=== PATIENT | female | born 1960 | race Caucasian/White ===

== ENCOUNTER 2025-01-06 13:19 | Inpatient (IN) ==
--- NOTE | 2025-01-06 13:29 | ED Physician Documentation ---
PD HPI NVD Stated complaint Stated Complaint: ETOH WITHDRAWL Chief complaint Chief Complaint: Abd Pain History obtained from History obtained from: Patient (she states quit alcohol 5-6 days ago, prior to that about 6 pack daily. Had some diarrhea without blood for 2-3 days and is stopped. Feeling generally weak. Having numbness in left foot. Sore around rectum. Feels confused. ) and EMS History of Present Illness Timing - onset: How many days ago (feeling weak, confused for couple of days. ) Timing - details: Gradual onset Associated symptoms: Other (diarrhea for 2-3 days. ); No Fever, Abdominal pain, Loss of appetite or Dysuria Contributing factors: Alcohol use (quit 5-6 days ago. Denies withdrawal symptoms. ); No Sick contact Similar symptoms before: Has not had sx before Meds/Allgy Home Medications Ambulatory Orders Medication Instructions Recorded Confirmed No Known Home Medications 01/06/25 01/06/25 Allergies Allergies Allergy/AdvReac Type Severity Reaction Status Date / Time centipedes Allergy Unknown Unknown Uncoded 01/06/25 13:31 PFSH Active Problems All Active Problems (Updated 01/06/25 @ 16:32 by Marcus Sanchez MD) Acute UTI (Acute) Candidal skin infection (Acute) Acute hyponatremia (Acute) Alcohol use disorder (Acute) Acute confusion (Acute) Weakness (Acute) Social History Social History Do you feel safe in your home environment?: Yes Suffered physical, verbal, emotional, or financial abuse?: No Exam Exam Vital Signs: Vital Signs x48h Temp Pulse Resp BP Pulse Ox 01/06/25 13:31 36.3 C L 86 18 153/91 H 99 Constitutional abnormal body habitus (thin) and (underweight) HENMT normocephalic, head/scalp atraumatic, oral mucous membranes abnormal (dry) and oropharynx normal Eyes PERRL and EOMs intact bilaterally Neck/C-Spine supple and no meningeal signs Lymph no lymphadenopathy noted Respiratory breath sounds equal bilaterally, normal respiratory effort and no wheezes Cardiovascular normal heart rate noted and regular rhythm noted Gastrointestinal abdomen soft to palpation, nontender to palpation and hepatosplenomegaly noted (hepatomegaly) Extremities no tenderness and full ROM Psychiatry orientation abnormal (disoriented to time) and thought process abnormality noted (sluggish responses but coherent and approirpiate) Skin rash noted other (spotty red rash perirectal and some uniform redness immediately perirectal most c/w yeast infection (*presume related to recent diarrhea).) Results Vitals Vitals: Vital Signs - 24 hr 01/06/25 13:31 Temperature 36.3 C L Temperature Source Temporal Artery Scan Pulse Rate 86 Respiratory Rate 18 Blood Pressure 153/91 H O2 Saturation 99 O2 Source Room air Pain Intensity 0 Oxygen O2 Source Room air Labs Labs: Laboratory Tests 01/06/25 01/06/25 14:01 14:08 WBC 5.2 RBC 3.39 L Hgb 12.1 Hct 35.2 L MCV 103.8 H MCH 35.7 H MCHC 34.4 RDW 13.1 Plt Count 127 L MPV 10.4 Neut # (Auto) 3.2 Lymph # (Auto) 1.3 L [place] # (Auto) 0.6 Eos # (Auto) 0.0 Baso # (Auto) 0.1 Absolute Nucleated RBC 0.00 Nucleated RBC % 0.0 Sodium 118 L* Potassium 3.3 L Chloride 86 L Carbon Dioxide 23 Anion Gap 9.0 BUN 7 Creatinine 0.5 L Estimated GFR (MDRD) 123 Glucose 105 H Calcium 8.4 L Magnesium 1.6 L Total Bilirubin 1.3 H AST 88 H ALT 74 H Alkaline Phosphatase 95 Total Creatine Kinase 23 L Total Protein 5.8 L Albumin 3.4 Globulin 2.4 Albumin/Globulin Ratio 1.4 Lipase 47 TSH 1.87 Urine Color YELLOW Urine Clarity CLOUDY Urine pH 7.0 Ur Specific [place] 1.015 Urine Protein TRACE Urine Glucose (UA) NEGATIVE Urine Ketones TRACE Urine Occult Blood TRACE-INTA Urine Nitrite NEGATIVE Urine Bilirubin SMALL H Urine Urobilinogen 4 H Ur Leukocyte Esterase LARGE H Urine RBC None Seen Urine WBC 11-25 H Ur Squamous Epith Cells RARE Squamous Amorphous Sediment Marked Urine Bacteria Many H Ur Microscopic Review INDICATED Urine Culture Comments INDICATED Salicylates < 1.5 Urine Opiates Screen NEGATIVE Ur Buprenorphine Scrn NEGATIVE Ur Oxycodone Screen NEGATIVE Urine Methadone Screen NEGATIVE Acetaminophen 0.2 Ur Barbiturates Screen NEGATIVE Ur Tricyclics Screen NEGATIVE Ur Phencyclidine Scrn NEGATIVE Ur Amphetamine Screen NEGATIVE U Methamphetamines Scrn NEGATIVE U Benzodiazepines Scrn NEGATIVE Urine Cocaine Screen NEGATIVE U Cannabinoids Screen POSITIVE H Ur Drug Screen Comment CUTOFF CONC BELOW: Ethyl Alcohol < 10.0 PD Medical Decision Making ED course Complexity details: reviewed results (low sodium 118, presume from recent d iarrhea, water/alcohol intake-dillution, and can check TSH. UA showing uti. Multiple problems. ), considered differential and d/w patient Discharge Plan Discharge Patient Disposition: 64 [facility] DC/Xfer Condition: Stable Clinical Impression: Acute hyponatremia, Weakness, Acute confusion, Alcohol use disorder, Candidal skin infection, Acute UTI Prescriptions: No Action No Known Home Medications Print Language: Spanish
[2025-01-06 14:11] LABS: BASOPHILS # (AUTO) 0.1 10^3/uL (0.0-0.1); EOSINOPHILS % (AUTO) 0.6 %; HCT - HEMATOCRIT 35.2 % (37.0-47.0); HGB - HEMOGLOBIN 12.1 g/dL (12.0-16.0); LYMPHOCYTES # (AUTO) 1.3 10^3/uL (1.5-3.5); LYMPHOCYTES % (AUTO) 24.6 %; MEAN CORPUSCULAR HEMOGLOBIN 35.7 pg (27.0-31.0); MEAN CORPUSCULAR HGB CONC 34.4 g/dL (32.0-36.0); MEAN CORPUSCULAR VOLUME 103.8 fL (81.0-99.0); MEAN PLATELET VOLUME 10.4 fL (7.9-10.8); MONOCYTES # (AUTO) 0.6 10^3/uL (0.0-1.0); MONOCYTES % (AUTO) 11.8 %; NEUTROPHILS # (AUTO) 3.2 10^3/uL (1.5-6.6); NEUTROPHILS % (AUTO) 61.4 %; PLT - PLATELET COUNT 127 10^3/uL (130-450); RED BLOOD COUNT 3.39 10^6/uL (4.20-5.40); RED CELL DISTRIBUTION WIDTH 13.1 % (12.0-15.0); WHITE BLOOD COUNT 5.2 x10^3/uL (4.8-10.8)
[2025-01-06 14:24] LABS: ACETAMINOPHEN 0.2 ug/mL; CK- CREATINE KINASE 23 IU/L (30-223); ETOH - ETHANOL < 10.0 mg/dL; LIPASE 47 U/L (11-82); MAGNESIUM 1.6 mg/dL (1.7-2.3)
[2025-01-06 14:24] LABS: BILIRUBIN,URINE SMALL (NEGATIVE); GLUCOSE, URINE (UA) NEGATIVE (NEGATIVE); KETONES,URINE (UA) TRACE mg/dL (NEGATIVE); LEUKOCYTE ESTERASE, URINE LARGE (NEGATIVE); NITRITE,URINE NEGATIVE (NEGATIVE); OCCULT BLOOD,URINE TRACE-INTA (NEGATIVE); PROTEIN,URINE TRACE mg/dL (NEGATIVE); UROBILINOGEN,URINE 4 E.U./dL (NORMAL)
[2025-01-06 14:25] LABS: CLARITY,URINE CLOUDY (CLEAR)
[2025-01-06 14:30] LABS: SODIUM 118 mmol/L (135-145)
[2025-01-06] MEDS: SODIUM CHLORIDE 0.9% 1,000 ML IV STA ×2 (14:31→15:31)
[2025-01-06 14:37] LABS: ALBUMIN 3.4 g/dL (3.2-5.5); ALBUMIN/GLOBULIN RATIO 1.4 (1.0-2.2); ALKALINE PHOSPHATASE 95 IU/L (42-121); ALT ALANINE AMINOTRANSFERASE 74 IU/L (10-60); AST ASPARTATE AMINOTRANSFERASE 88 IU/L (10-42); BILIRUBIN,TOTAL 1.3 mg/dL (0.2-1.0); BUN - BLOOD UREA NITROGEN 7 mg/dL (6-20); CALCIUM 8.4 mg/dL (8.5-10.3); CARBON DIOXIDE - CO2 23 mmol/L (21-32); CHLORIDE 86 mmol/L (101-111); CREATININE 0.5 mg/dL (0.6-1.3); GFR - MDRD 123 (>89); GLUCOSE 105 mg/dL (74-104); POTASSIUM 3.3 mmol/L (3.5-4.5); THYROID STIMULATING HORMONE 1.87 uIU/mL (0.34-5.60); TOTAL PROTEIN 5.8 g/dL (6.4-8.9)
[2025-01-06 14:43] LABS: SALICYLATE < 1.5 mg/dL
[2025-01-06 14:49] LABS: AMORPHOUS SEDIMENT,UR Marked /LPF; BACTERIA,URINE Many /HPF (None Seen); RBC,URINE None Seen /HPF (0-5); SQUAMOUS EPITHELIAL CELL,UR RARE Squamous (<= Few)
[2025-01-06 14:50] LABS: AMPHETAMINE SCREEN,URINE NEGATIVE (NEGATIVE); BARBITURATE SCREEN,UR NEGATIVE (NEGATIVE); BENZODIAZEPINES SCREEN, URINE NEGATIVE (NEGATIVE); BUPRENORPHINE SCREEN, URINE NEGATIVE (NEGATIVE); COCAINE SCREEN URINE NEGATIVE (NEGATIVE); METHADONE SCREEN, URINE NEGATIVE (NEGATIVE); METHAMPHETAMINES SCREEN, URINE NEGATIVE (NEGATIVE); OPIATE SCREEN, URINE NEGATIVE (NEGATIVE); OXYCODONE SCREEN, URINE NEGATIVE (NEGATIVE); THC CANNABINOID SCREEN, URINE POSITIVE (NEGATIVE); TRICYCLIC ANTIDEPRESSANT,URINE NEGATIVE (NEGATIVE)
[2025-01-06] MEDS ORDERED: ONDANSETRON 4 MG/2 ML VIAL IVP PRN (15:54)
[2025-01-06] MEDS ORDERED: ACETAMINOPHEN 500 MG TABLET PO PRN (15:54)
[2025-01-06] MEDS: MAGNESIUM OXIDE 400 MG TABLET PO SCH (16:29)
[2025-01-06] MEDS: MULTIVITAMIN TABLET PO SCH (16:29)
[2025-01-06] MEDS: THIAMINE 100 MG TABLET PO STA (16:29)
[2025-01-06] MEDS: PANTOPRAZOLE 40 MG TABLET PO SCH (16:29)
[2025-01-06] MEDS: POTASSIUM BICARB 25 MEQ TABLET PO STA (16:29)
--- NOTE | 2025-01-06 21:01 | ED Physician Documentation ---
ED Addendum Addendum Addendum: Care from Dr. Sanchez earlier in the day at 4 PM. Briefly this is a 64-year-old woman with history of alcoholism who is generally weak and found to have a sodium of 118. She had been boarding in the emergency department as there were no beds available on the floor. At the time of this desiccation (9:01 PM) I am told that we will be opening up at 11 PM so a telehealth hospitalist consult was placed at this time. Spoke with Dr. Duncan shortly thereafter for admission. Discharge Plan Discharge Patient Disposition: 64 [facility] DC/Xfer Condition: Stable Clinical Impression: Acute hyponatremia, Weakness, Acute confusion, Alcohol use disorder, Candidal skin infection, Acute UTI Prescriptions: No Action No Known Home Medications Print Language: Pashto
[2025-01-06] MEDS: NITROFURANTOIN MACRO 100 MG CAPSULE PO SCH (21:10)
--- NOTE | 2025-01-06 21:41 | HISTORY & PHYSICAL EXAMINATION ---
Chief Complaint Chief Complaint Chief Complaint: Weakness History of Present Illness History of Present Illness HPI Comment/Other: 64 Y old female with PMH alcohol abuse presented to ER due to weakness and diarrhea for 2 days. Denies nausea, vomiting, abdominal pain, fever Labs showed Na 118, hyponatremia, hypomagnesemia, and UTI In ER, pt was given IVF, Pt is admitted due to severe hyponatremia, weakness and UTI Review of Systems Status of ROS: 10 or more systems reviewed and unremarkable except as noted in history and below PFSH Active Problems All Active Problems (Updated 01/06/25 @ 16:32 by Marcus Sanchez MD) Acute UTI (Acute) Candidal skin infection (Acute) Acute hyponatremia (Acute) Alcohol use disorder (Acute) Acute confusion (Acute) Weakness (Acute) Social History Social History Do you feel safe in your home environment?: Yes Suffered physical, verbal, emotional, or financial abuse?: No Meds/Allgy Home Medications Ambulatory Orders Medication Instructions Recorded Confirmed No Known Home Medications 01/06/25 01/06/25 Allergies Allergies Allergy/AdvReac Type Severity Reaction Status Date / Time centipedes Allergy Unknown Unknown Uncoded 01/06/25 13:31 Exam Exam Vital Signs: Vital Signs x48h Temp Pulse Resp BP Pulse Ox 01/06/25 20:00 73 18 98 01/06/25 18:04 36.1 C L 81 18 103/67 98 01/06/25 16:39 74 18 127/69 99 Constitutional normal general appearance HENMT normocephalic Eyes PERRL Neck/C-Spine visual inspection normal Respiratory breath sounds equal bilaterally Cardiovascular normal heart rate noted Gastrointestinal abdomen normal to inspection and abdomen soft to palpation Extremities normal to inspection Neurology no focal motor deficit noted Skin no rash Conclusion/Plan Problem List (1) Acute hyponatremia: Plan: A: Severe hyponatremia UTI Hypokalemia Hypomagnesemia Weakness Alcohol abuse Plan: Admit to med surg with tele Cardiac monitoring Start NS @ 100 cc/h Check serum sodium q4h Neuro check Correction of sodium should not exceed more than 0.5 meq per hour Follow cultures Start Rocephin 1 gram iv daily Replace electrolytes PT Monitor for withdrawl Start thiamine and folic acid DVT prophylaxic: SCD Full code Pt is admitted as inpatient as more than 2 midnight stay is expected Lab Results 01/06/25 14:01 01/06/25 14:01
[2025-01-06] MEDS: SODIUM CHLORIDE 0.9% 1,000 ML IV SCH (22:25)
[2025-01-07] MEDS ORDERED: SODIUM CHLORIDE FLUSH 0.9% 10 ML SYRINGE IVP PRN (00:19)
[2025-01-07] MEDS: SODIUM CHLORIDE FLUSH 0.9% 10 ML SYRINGE IVP SCH (00:52)
[2025-01-07] MEDS: SODIUM CHLORIDE 0.9% 1,000 ML IV SCH (01:00)
[2025-01-07 04:41] LABS: BASOPHILS # (AUTO) 0.1 10^3/uL (0.0-0.1); BASOPHILS % (AUTO) 1.1 %; EOSINOPHILS # (AUTO) 0.1 10^3/uL (0.0-0.7); HCT - HEMATOCRIT 31.9 % (37.0-47.0); HGB - HEMOGLOBIN 11.4 g/dL (12.0-16.0); LYMPHOCYTES # (AUTO) 1.7 10^3/uL (1.5-3.5); MEAN CORPUSCULAR HEMOGLOBIN 37.3 pg (27.0-31.0); MEAN CORPUSCULAR HGB CONC 35.7 g/dL (32.0-36.0); MEAN CORPUSCULAR VOLUME 104.2 fL (81.0-99.0); MEAN PLATELET VOLUME 10.3 fL (7.9-10.8); MONOCYTES # (AUTO) 0.5 10^3/uL (0.0-1.0); NEUTROPHILS # (AUTO) 2.1 10^3/uL (1.5-6.6); NEUTROPHILS % (AUTO) 47.5 %; PLT - PLATELET COUNT 121 10^3/uL (130-450); RED BLOOD COUNT 3.06 10^6/uL (4.20-5.40); RED CELL DISTRIBUTION WIDTH 13.1 % (12.0-15.0); WHITE BLOOD COUNT 4.5 x10^3/uL (4.8-10.8)
[2025-01-07 04:52] LABS: CREATININE 0.4 mg/dL (0.6-1.3); POTASSIUM 3.5 mmol/L (3.5-4.5)
[2025-01-07] MEDS ORDERED: FOLIC ACID 1 MG TABLET PO SCH (09:00)
[2025-01-07] MEDS: cefTRIAXone 1 GM in SODIUM CHLORIDE 0.9% MINIBAG 100 ML IV SCH (09:31)
[2025-01-07] MEDS: FOLIC ACID 1 MG TABLET PO SCH (09:31)
[2025-01-07] MEDS: THIAMINE 100 MG TABLET PO SCH (09:31)
--- NOTE | 2025-01-07 13:14 | PT Plan of Care ---
PT Inpatient Plan of Care DIAGNOSIS Diagnosis: UTI, hyponatremia Referring Provider: Shabnam Woodward Patient Status: Inpatient CHIEF COMPLAINT Chief Complaint: 2 days of weakness and diarrhea Onset of Chief Complaint: KETTLE TENDER on 01/06/25 BALANCE/FUNCTIONAL RESULTS Sitting Balance: Fair Standing Balance: Poor Tinetti Composite Score (Balance + Gait): 14 Tinetti Assessment Interpretation: High Fall Risk ASSESSMENT Assessment: The pt is a 64 y/o F who arrived to the ED on 01/06/25 due to progressive weakness and diarrhea over 2 days KETTLE TENDER, she was hospitalized with UTI and hyponatremia. She has a PMH including ETOH abuse, please see chart for complete medical hx. The pt was received resting comfortably supine in bed and presented today with decreased B UE and LE strength, decreased activity tolerance, and standing balance impairments which limited her tolerance/safety during functional mobility. Her overall tolerance throughout this assessment was limited by weakness and fatigue. At this time recommend continued skilled PT intervention while in the acute setting and DC home with therapy for further rehab once pt medically stable. This plan was discussed with the pt and she was in agreement with this. At the end of the session the pt was sitting up in a chair with call light in reach, chair alarm in place and on, and all needs met while eating her lunch. RN updated on pt's status and DC rec. PATIENT/FAMILY GOALS Patient/Family Goals: To be safe to go back home GOALS Improve supine to sit to:: Independent Improve sit to stand to:: Modified Independent Improve pivot transfer ability to:: Modified Independent Improve sit to supine to:: Independent Improve gait ability to:: Ind Advance Assistive Device to:: Front Wheeled Walker Increase distance walked to (in feet):: 50 PLAN Frequency: 1-2x/day Duration: Until discharge DISCHARGE RECOMMENDATIONS Discharge Location: Previous Living Situation Support/Services Needed: Home Health P.T. DC Equipment Recommended: Front wheeled walker Transport Needs at Discharge: Personal vehicle
--- NOTE | 2025-01-07 13:16 | PHARMACY PROGRESS NOTE ---
Best Possible Medication History Admit Date and Time: 01/06/252115 Home Medications Medication Instructions Recorded Confirmed Type No Known Home Medications 01/06/25 01/06/25 History Processed by: Nursing Medications reviewed in ED?: Yes Patient Interview: Pt interview ONLY source [facility] Statement: As the person ultimately responsible for medication therapy, providers are able to order a medication from an existing home medication list in [facility] via the "Reconcile Routine" prior to Confirmation of that medication by network and threat support specialist. Such practice is discouraged except when the physician, in their clinical judgment, deems that a medical need exists for a medication without regard to previous use.
--- NOTE | 2025-01-07 14:12 | PROVIDER PROGRESS NOTE ---
Subjective Subjective Subjective: Patient reports that she is feeling "much better" today. She reports that she has been sick for the past 4 days with explosive diarrhea. She reports during this time that she has not been eating and been "drinking too much." She reports that she typically drinks 3-4 beers/day, and her alcohol use disorder has worsened in the past couple of years due to depression. She reports using cannabis at night. She currently lives with a friend. She denies using a cane or walker to assist with mobility at home. Current Medications Current Medications Current Medications: Current Medications Generic Name Dose Route Start Last Admin Trade Name Freq PRN Reason Stop Dose Admin Folic Acid 1 mg 01/07/25 09:00 01/07/25 09:31 Folic Acid 1 Mg Tablet PO 1 mg DAILY KIMBERLYN Administration Ceftriaxone Sodium 1 gm/ 100 mls @ 200 mls/hr 01/07/25 09:00 01/07/25 09:31 Sodium Chloride IV 200 mls/hr DAILY KIMBERLYN Administration Sodium Chloride 1,000 mls @ 100 mls/hr 01/06/25 22:00 01/07/25 00:58 Normal Saline 0.9% IV Infused .Q10H KIMBERLYN Infusion Magnesium Oxide 400 mg 01/06/25 16:00 01/07/25 09:32 Magnesium Oxide 400 Mg Tablet PO 400 mg DAILYWM KIMBERLYN Administration Multivitamins 1 tab 01/06/25 16:00 01/07/25 09:31 Multivitamin Tablet PO 1 tab DAILYWM KIMBERLYN Administration Ondansetron HCl 4 mg 01/06/25 15:54 Ondansetron 4 Mg/2 Ml Vial IVP Q6HR PRN Nausea / Vomiting Pantoprazole Sodium 40 mg 01/06/25 16:00 01/07/25 06:28 Pantoprazole 40 Mg Tablet PO 40 mg QDAC KIMBERLYN Administration Sodium Chloride 10 ml 01/07/25 00:19 Sodium Chloride Flush 0.9% 10 Ml Syringe IVP PRN PRN NEEDED PER PROVIDER ORDERS Sodium Chloride 10 ml 01/07/25 01:00 01/07/25 09:32 Sodium Chloride Flush 0.9% 10 Ml Syringe IVP Not Given 0100,0900,1700 KIMBERLYN Thiamine HCl 100 mg 01/07/25 09:00 01/07/25 09:31 Thiamine 100 Mg Tablet PO 100 mg DAILY KIMBERLYN Administration Throat Lozenges 1 lozenge 01/07/25 01:27 Benzocaine/Menthol Lozenge MM Q2HR PRN Throat pain Objective Vital Signs/Intake & Output Reviewed Vital Signs: Yes Vital Signs: Vital Signs x48h Temp Pulse Pulse Resp BP Pulse Ox 01/07/25 08:25 36.4 C L 86 18 176/97 H 98 01/07/25 04:31 36.7 C 80 20 137/84 H 100 Intake & Output: Intake & Output 01/04/25 01/05/25 01/06/25 01/07/25 23:59 23:59 23:59 23:59 Intake Total 1999 295 / 295 Output Total 800 / 800 Balance 1999 -505 / -505 Weight (kg) 49.5 kg 48.5 kg Objective General Appearance: positive No acute distress, Alert and Anxious Eyes Bilateral: positive Normal inspection, PERRL and EOMI ENT: positive ENT inspection nml Neck: positive Nml inspection Respiratory: positive Chest non-tender and No respiratory distress Cardiovascular: positive Regular rate & rhythm Abdomen: positive Non-tender Back: positive Nml inspection Skin: positive Color nml and Other (Scattered ecchymosis) Extremities: positive Non-tender Neurologic/Psychiatric: positive Oriented x3 and Other (Flat) Lab Results 01/07/25 04:25 01/07/25 04:25 Other Labs: Lab Results x24hrs 01/07/25 01/07/25 01/06/25 Range/Units : 00:55 20:58 WBC 4.5 L (4.8-10.8) x10^3/uL RBC 3.06 L (4.20-5.40) 10^6/uL Hgb 11.4 L (12.0-16.0) g/dL Hct 31.9 L (37.0-47.0) % MCV 104.2 H (81.0-99.0) fL MCH 37.3 H (27.0-31.0) pg MCHC 35.7 (32.0-36.0) g/dL RDW 13.1 (12.0-15.0) % Plt Count 121 L (130-450) 10^3/uL MPV 10.3 (7.9-10.8) fL Neut # (Auto) 2.1 (1.5-6.6) 10^3/uL Lymph # (Auto) 1.7 (1.5-3.5) 10^3/uL [place] # (Auto) 0.5 (0.0-1.0) 10^3/uL Eos # (Auto) 0.1 (0.0-0.7) 10^3/uL Baso # (Auto) 0.1 (0.0-0.1) 10^3/uL Absolute Nucleated RBC 0.00 x10^3/uL Nucleated RBC % 0.0 /100WBC Sodium 124 L 124 L 123 L (135-145) mmol/L Potassium 3.5 (3.5-4.5) mmol/L Chloride 94 L (101-111) mmol/L Carbon Dioxide 25 (21-32) mmol/L Anion Gap 5.0 L (6-13) BUN 5 L (6-20) mg/dL Creatinine 0.4 L (0.6-1.3) mg/dL Estimated GFR (MDRD) 160 (>89) Glucose 93 (74-104) mg/dL Calcium 8.0 L (8.5-10.3) mg/dL Magnesium (1.7-2.3) mg/dL Total Bilirubin (0.2-1.0) mg/dL AST (10-42) IU/L ALT (10-60) IU/L Alkaline Phosphatase (42-121) IU/L Total Creatine Kinase (30-223) IU/L Total Protein (6.4-8.9) g/dL Albumin (3.2-5.5) g/dL Globulin (2.1-4.2) g/dL Albumin/Globulin Ratio (1.0-2.2) Lipase (11-82) U/L TSH (0.34-5.60) uIU/mL Urine Color Urine Clarity (CLEAR) Urine pH (5.0-7.5) PH Ur Specific [place] (1.002-1.030) Urine Protein (NEGATIVE) mg/dL Urine Glucose (UA) (NEGATIVE) mg/dL Urine Ketones (NEGATIVE) mg/dL Urine Occult Blood (NEGATIVE) Urine Nitrite (NEGATIVE) Urine Bilirubin (NEGATIVE) Urine Urobilinogen (NORMAL) E.U./dL Ur Leukocyte Esterase (NEGATIVE) Urine RBC (0-5) /HPF Urine WBC (0-5) /HPF Ur Squamous Epith Cells (<= Few) Amorphous Sediment /LPF Urine Bacteria (None Seen) /HPF Ur Microscopic Review Urine Culture Comments Salicylates mg/dL Urine Opiates Screen (NEGATIVE) Ur Buprenorphine Scrn (NEGATIVE) Ur Oxycodone Screen (NEGATIVE) Urine Methadone Screen (NEGATIVE) Acetaminophen ug/mL Ur Barbiturates Screen (NEGATIVE) Ur Tricyclics Screen (NEGATIVE) Ur Phencyclidine Scrn (NEGATIVE) Ur Amphetamine Screen (NEGATIVE) U Methamphetamines Scrn (NEGATIVE) U Benzodiazepines Scrn (NEGATIVE) Urine Cocaine Screen (NEGATIVE) U Cannabinoids Screen (NEGATIVE) Ur Drug Screen Comment Ethyl Alcohol mg/dL 01/06/25 01/06/25 Range/Units 14:08 14:01 WBC 5.2 (4.8-10.8) x10^3/uL RBC 3.39 L (4.20-5.40) 10^6/uL Hgb 12.1 (12.0-16.0) g/dL Hct 35.2 L (37.0-47.0) % MCV 103.8 H (81.0-99.0) fL MCH 35.7 H (27.0-31.0) pg MCHC 34.4 (32.0-36.0) g/dL RDW 13.1 (12.0-15.0) % Plt Count 127 L (130-450) 10^3/uL MPV 10.4 (7.9-10.8) fL Neut # (Auto) 3.2 (1.5-6.6) 10^3/uL Lymph # (Auto) 1.3 L (1.5-3.5) 10^3/uL [place] # (Auto) 0.6 (0.0-1.0) 10^3/uL Eos # (Auto) 0.0 (0.0-0.7) 10^3/uL Baso # (Auto) 0.1 (0.0-0.1) 10^3/uL Absolute Nucleated RBC 0.00 x10^3/uL Nucleated RBC % 0.0 /100WBC Sodium 118 L* (135-145) mmol/L Potassium 3.3 L (3.5-4.5) mmol/L Chloride 86 L (101-111) mmol/L Carbon Dioxide 23 (21-32) mmol/L Anion Gap 9.0 (6-13) BUN 7 (6-20) mg/dL Creatinine 0.5 L (0.6-1.3) mg/dL Estimated GFR (MDRD) 123 (>89) Glucose 105 H (74-104) mg/dL Calcium 8.4 L (8.5-10.3) mg/dL Magnesium 1.6 L (1.7-2.3) mg/dL Total Bilirubin 1.3 H (0.2-1.0) mg/dL AST 88 H (10-42) IU/L ALT 74 H (10-60) IU/L Alkaline Phosphatase 95 (42-121) IU/L Total Creatine Kinase 23 L (30-223) IU/L Total Protein 5.8 L (6.4-8.9) g/dL Albumin 3.4 (3.2-5.5) g/dL Globulin 2.4 (2.1-4.2) g/dL Albumin/Globulin Ratio 1.4 (1.0-2.2) Lipase 47 (11-82) U/L TSH 1.87 (0.34-5.60) uIU/mL Urine Color YELLOW Urine Clarity CLOUDY (CLEAR) Urine pH 7.0 (5.0-7.5) PH Ur Specific [place] 1.015 (1.002-1.030) Urine Protein TRACE (NEGATIVE) mg/dL Urine Glucose (UA) NEGATIVE (NEGATIVE) mg/dL Urine Ketones TRACE (NEGATIVE) mg/dL Urine Occult Blood TRACE-INTA (NEGATIVE) Urine Nitrite NEGATIVE (NEGATIVE) Urine Bilirubin SMALL H (NEGATIVE) Urine Urobilinogen 4 H (NORMAL) E.U./dL Ur Leukocyte Esterase LARGE H (NEGATIVE) Urine RBC None Seen (0-5) /HPF Urine WBC 11-25 H (0-5) /HPF Ur Squamous Epith Cells RARE Squamous (<= Few) Amorphous Sediment Marked /LPF Urine Bacteria Many H (None Seen) /HPF Ur Microscopic Review INDICATED Urine Culture Comments INDICATED Salicylates < 1.5 mg/dL Urine Opiates Screen NEGATIVE (NEGATIVE) Ur Buprenorphine Scrn NEGATIVE (NEGATIVE) Ur Oxycodone Screen NEGATIVE (NEGATIVE) Urine Methadone Screen NEGATIVE (NEGATIVE) Acetaminophen 0.2 ug/mL Ur Barbiturates Screen NEGATIVE (NEGATIVE) Ur Tricyclics Screen NEGATIVE (NEGATIVE) Ur Phencyclidine Scrn NEGATIVE (NEGATIVE) Ur Amphetamine Screen NEGATIVE (NEGATIVE) U Methamphetamines Scrn NEGATIVE (NEGATIVE) U Benzodiazepines Scrn NEGATIVE (NEGATIVE) Urine Cocaine Screen NEGATIVE (NEGATIVE) U Cannabinoids Screen POSITIVE H (NEGATIVE) Ur Drug Screen Comment CUTOFF CONC BELOW: Ethyl Alcohol < 10.0 mg/dL Assessment/Plan Problem List (1) Acute hyponatremia: Impression: Na was 118 mmol/L in ED. Hyponatremia is likely secondary to patient's alcohol use disorder and to volume and electrolyte depletion due to diarrhea for the past 4 days. Reports that she has not been eating and has been "drinking too much" for the past 4 days. This morning, Na is improving at 124 mmol/L. No episodes of diarrhea in the last 24 hours. Plan: Continue sodium replacement (Increase Na no more than 6-8 mEq in 24 hours) and hydration with NS @100mL/hr Q4hour Na checks Neuro checks (2) Acute UTI: Impression: Urinalysis + in ED on 01/06. Preliminary culture result + for gram negative rods >100,00 CFU/mL. Patient is afebrile. Denies dysuria, urgency, or frequency with voiding. Plan: Continue IV ceftriaxone (day 2/5), pending culture Plan to transition to PO abx once culture has resulted and symptoms continue to resolve (3) Alcohol use disorder: Impression: Reports that for the past 4 days she has been "drinking too much" and unable to eat. Endorses drinking 3-4 beers per day. Reports that her alcoholism has worsened due to depression over the past two years. Patient denies following with psychiatry/behavioral health services. Plan: Continue PO folic acid, thiamine, and magnesium supplementation Consult social work to assist with identifying behavioral health services in the community Not in active withdrawal at this time; monitor off CIWA (4) Weakness: Impression: Generalized weakness, likely due to volume depletion as a result of diarrhea and deconditioning related to alcohol use disorder. PO intake improving today. Plan: Physical therapy evaluation - recommend home independently. Continue volume repletion with IVF
[2025-01-07 16:08] LABS: CALCIUM 8.2 mg/dL (8.5-10.3); CREATININE 0.4 mg/dL (0.6-1.3); POTASSIUM 3.7 mmol/L (3.5-4.5)
--- NOTE | 2025-01-07 18:18 | XRAY Report ---
PROCEDURE: XR Chest 1V INDICATIONS: LUIS TECHNIQUE: One view of the chest was acquired. COMPARISON: None. FINDINGS: Surgical changes and devices: None. Lungs and pleura: No pleural effusions or pneumothorax. No consolidation. Mediastinum: Mediastinal contours appear normal. Heart size is normal. Bones and chest wall: No suspicious bony lesions. Overlying soft tissues appear unremarkable. IMPRESSION: No acute cardiopulmonary process. Reviewed by: Will Tidwell MD on 01/07/2025 5:16 PM [facility] Approved by: Will Tidwell MD on 01/07/2025 5:16 PM [facility] Station ID: [id number]
[2025-01-08 05:04] LABS: HCT - HEMATOCRIT 26.4 % (37.0-47.0); HGB - HEMOGLOBIN 9.2 g/dL (12.0-16.0); MEAN CORPUSCULAR HEMOGLOBIN 36.4 pg (27.0-31.0); MEAN CORPUSCULAR HGB CONC 34.8 g/dL (32.0-36.0); MEAN CORPUSCULAR VOLUME 104.3 fL (81.0-99.0); MEAN PLATELET VOLUME 11.1 fL (7.9-10.8); RED BLOOD COUNT 2.53 10^6/uL (4.20-5.40); RED CELL DISTRIBUTION WIDTH 13.1 % (12.0-15.0)
[2025-01-08 05:27] LABS: MAGNESIUM 1.4 mg/dL (1.7-2.3)
[2025-01-08 05:32] LABS: ALBUMIN 2.6 g/dL (3.2-5.5); ALBUMIN/GLOBULIN RATIO 1.5 (1.0-2.2); BILIRUBIN,TOTAL 0.6 mg/dL (0.2-1.0); CALCIUM 7.4 mg/dL (8.5-10.3); CREATININE 0.4 mg/dL (0.6-1.3); POTASSIUM 3.2 mmol/L (3.5-4.5); TOTAL PROTEIN 4.3 g/dL (6.4-8.9)
[2025-01-08] MEDS ORDERED: MAGNESIUM SULFATE 1 GM/2 ML VIAL IVP STA (07:39)
[2025-01-08] MEDS ORDERED: POTASSIUM CHLORIDE 20 MEQ TABLET PO ONE (07:39)
[2025-01-08] MEDS: POTASSIUM CHLORIDE 20 MEQ TABLET PO ONE (08:56)
[2025-01-08] MEDS: MAGNESIUM SULFATE 2 GRAM 2 GM/50 ML BAG IV ONE (09:24)
[2025-01-08 12:11] LABS: CALCIUM 7.5 mg/dL (8.5-10.3); CREATININE 0.5 mg/dL (0.6-1.3); POTASSIUM 3.8 mmol/L (3.5-4.5)
[2025-01-08] MEDS: SODIUM CHLORIDE 1 GM TABLET PO SCH (13:11)
--- NOTE | 2025-01-08 13:45 | PROVIDER PROGRESS NOTE ---
Subjective Subjective Pt reports feeling: Improved Subjective: Patient reports that she continues to feel better, and is looking forward to going home. Discussed plan for IV fluids and electrolyte replacement, followed by sodium level re-check, to determine whether she can discharge home today. Current Medications Current Medications Current Medications: Current Medications Generic Name Dose Route Start Last Admin Trade Name Freq PRN Reason Stop Dose Admin Folic Acid 1 mg 01/07/25 09:00 01/08/25 08:38 Folic Acid 1 Mg Tablet PO 1 mg DAILY KIMBERLYN Administration Ceftriaxone Sodium 1 gm/ 100 mls @ 200 mls/hr 01/07/25 09:00 01/08/25 08:37 Sodium Chloride IV 200 mls/hr DAILY KIMBERLYN Administration Magnesium Oxide 400 mg 01/06/25 16:00 01/08/25 08:38 Magnesium Oxide 400 Mg Tablet PO 400 mg DAILYWM KIMBERLYN Administration Multivitamins 1 tab 01/06/25 16:00 01/08/25 08:38 Multivitamin Tablet PO 1 tab DAILYWM KIMBERLYN Administration Ondansetron HCl 4 mg 01/06/25 15:54 Ondansetron 4 Mg/2 Ml Vial IVP Q6HR PRN Nausea / Vomiting Pantoprazole Sodium 40 mg 01/06/25 16:00 01/08/25 06:24 Pantoprazole 40 Mg Tablet PO 40 mg QDAC KIMBERLYN Administration Sodium Chloride 10 ml 01/07/25 00:19 Sodium Chloride Flush 0.9% 10 Ml Syringe IVP PRN PRN NEEDED PER PROVIDER ORDERS Sodium Chloride 10 ml 01/07/25 01:00 01/08/25 08:37 Sodium Chloride Flush 0.9% 10 Ml Syringe IVP 10 ml 0100,0900,1700 KIMBERLYN Administration Sodium Chloride 1 gm 01/08/25 13:00 01/08/25 13:11 Sodium Chloride 1 Gm Tablet PO 1 gm BID KIMBERLYN Administration Thiamine HCl 100 mg 01/07/25 09:00 01/08/25 08:38 Thiamine 100 Mg Tablet PO 100 mg DAILY KIMBERLYN Administration Throat Lozenges 1 lozenge 01/07/25 01:27 Benzocaine/Menthol Lozenge MM Q2HR PRN Throat pain Objective Vital Signs/Intake & Output Vital Signs: Vital Signs x48h Temp Pulse Resp BP Pulse Ox O2 Flow Rate 01/08/25 09:41 36.5 C 19 99/66 95 2 01/08/25 08:27 36.6 C 83 18 128/75 98 2 Intake & Output: Intake & Output 01/05/25 01/06/25 01/07/25 01/08/25 23:59 23:59 23:59 23:59 Intake Total 1999 3275 / 3275 1357 / 1357 Output Total 1375 / 1375 50 / 50 Balance 1999 1900 / 1900 1307 / 1307 Weight (kg) 49.5 kg 48.5 kg Lab Results 01/08/25 04:34 01/08/25 16:52 Other Labs: Lab Results x24hrs 01/08/25 01/08/25 01/07/25 Range/Units 11:47 04:34 15:30 WBC 5.0 (4.8-10.8) x10^3/uL RBC 2.53 L (4.20-5.40) 10^6/uL Hgb 9.2 L (12.0-16.0) g/dL Hct 26.4 L (37.0-47.0) % MCV 104.3 H (81.0-99.0) fL MCH 36.4 H (27.0-31.0) pg MCHC 34.8 (32.0-36.0) g/dL RDW 13.1 (12.0-15.0) % Plt Count 115 L (130-450) 10^3/uL MPV 11.1 H (7.9-10.8) fL Sodium 123 L 125 L 125 L (135-145) mmol/L Potassium 3.8 3.2 L 3.7 (3.5-4.5) mmol/L Chloride 97 L 100 L 94 L (101-111) mmol/L Carbon Dioxide 24 23 25 (21-32) mmol/L Anion Gap 2.0 L 2.0 L 6.0 (6-13) BUN 3 L 4 L 5 L (6-20) mg/dL Creatinine 0.5 L 0.4 L 0.4 L (0.6-1.3) mg/dL Estimated GFR (MDRD) 123 160 160 (>89) Glucose 99 86 88 (74-104) mg/dL Calcium 7.5 L 7.4 L 8.2 L (8.5-10.3) mg/dL Magnesium 1.4 L (1.7-2.3) mg/dL Total Bilirubin 0.6 (0.2-1.0) mg/dL AST 31 (10-42) IU/L ALT 38 (10-60) IU/L Alkaline Phosphatase 65 (42-121) IU/L Total Protein 4.3 L (6.4-8.9) g/dL Albumin 2.6 L (3.2-5.5) g/dL Globulin 1.7 L (2.1-4.2) g/dL Albumin/Globulin Ratio 1.5 (1.0-2.2) Assessment/Plan Problem List (1) Acute hyponatremia: Impression: This morning, Na recheck was 125. Administered 500mL NS bolus. Sodium decreased to 123. This is likely attributed to beer potomania in setting of high volume of fluid intake at home with solute intake. Plan: Will stop IVF. Salt tab 1gm BID Recheck Na (2) Acute UTI: Impression: Urinalysis + in ED on 01/06. Preliminary culture result + for gram negative rods >100,00 CFU/mL. Patient is afebrile. Denies dysuria, urgency, or frequency with voiding. Plan: Continue IV ceftriaxone (day 2/5), pending culture Plan to transition to PO abx with anticipated discharge (3) Alcohol use disorder: Impression: Reports that prior to hospital admission she has been "drinking too much" and unable to eat. Endorses drinking 3-4 beers per day. Reports that her alcoholism has worsened due to depression over the past two years. Patient denies following with psychiatry/behavioral health services. Patient denies history of alcohol withdrawal. Mag 1.4 and K 3.2 at 0400. IV replacement ordered. Repeat BMP shows K improved to 3.8. Plan: Continue PO folic acid, thiamine, and magnesium supplementation Continue to monitor electrolytes Social work consulted Not in active withdrawal at this time; monitor off CIWA (4) Weakness: Impression: Generalized weakness is mostly resolved. PO intake continues to improve. PT evaluated patient and cleared her to discharge home.
[2025-01-08] MEDS: SODIUM CHLORIDE 0.9% 500 ML IV ONE (15:49)
[2025-01-08] MEDS: BENZOCAINE/MENTHOL LOZENGE MM PRN (16:02)
--- NOTE | 2025-01-09 09:45 | Discharge Summary ---
Discharge Summary Admit Date: 01/06/25 Discharge Date: 01/09/25 Discharging Provider: Michelel Sanford MD Primary Care Provider: Estela Asencio, MSN, MA[employer]-BC, [employer]-C Code Status: Attempt Resuscitation DIAGNOSES Admission Diagnoses: Discharge Diagnoses with Status of Each Condition: Acute Hyponatremia (Acute) Acute UTI (Acute) Alcohol use disorder (Acute) Acute confusion (Acute) Weakness (Acute) HPI History of Present Illness: 64 Y old female with PMH alcohol abuse presented to ER due to weakness and diarrhea for 2 days. Denies nausea, vomiting, abdominal pain, fever Labs showed Na 118, hyponatremia, hypomagnesemia, and UTI In ER, pt was given IVF, Pt is admitted due to severe hyponatremia, weakness and UTI HOSPITAL COURSE Hospital Course: Acute hyponatremia (Acute) - Admitted with sodium level of 118, likely secondary to beer potamania and 4-day history of diarrhea. Received IV fluids and electrolyte replacement. Sodium level is currently 125. Patient is asymptomatic. Discharge with PO sodium tablets. Acute UTI - Urinalysis + in ED on 01/06. Preliminary culture result + for gram negative rods >100,00 CFU/mL. Patient is afebrile, denies dysuria, urgency, or frequency with voiding. Antibiotics transitioned from IV to PO for discharge. Alcohol use disorder - Reports that prior to hospital admission she has been "drinking too much." Endorses drinking at least 3-4 beers/ day. During admission, she did not exhibit active withdrawal symptoms and denies history of alcohol withdrawal. Reports that her alcoholism has worsened due to depression over the past two years, for which she is not acitively following with psychiatry/behavioral health services. Social work consulted to identify community resources. Generalized weakness - Generalized weakness, likely due to volume depletion as a result of diarrhea and deconditioning related to alcohol use disorder. Mostly resolved at this time. Patient received IV fluids and PO intake improved during hospital admission. PT evaluated patient and cleared her to discharge home. Home health with PT and OT ordered. ALLERGIES Allergies Allergy/AdvReac Type Severity Reaction Status Date / Time centipedes Allergy Unknown Unknown Uncoded 01/06/25 13:31 MEDICATIONS Ambulatory Orders Medication Instructions Recorded Confirmed folic acid 1 mg tablet 1 mg PO DAILY #100 tabs 01/09/25 magnesium oxide 400 mg (241.3 mg 400 mg PO DAILYWM #30 tabs 01/09/25 magnesium) tablet nitrofurantoin 100 mg PO Q12H 3 days #6 caps 01/09/25 monohydrate/macrocrystals 100 mg capsule (Macrobid) thiamine mononitrate (vit B1) 100 100 mg PO DAILY #100 tabs 01/09/25 mg tablet PHYSICAL EXAM AT DISCHARGE Vital Signs: Vital Signs x48h Temp Pulse Resp BP Pulse Ox 01/09/25 12:43 36.8 C 78 16 119/69 100 General Appearance: positive No acute distress Eyes Bilateral: positive Normal inspection ENT: positive ENT inspection nml Neck: positive Nml inspection Respiratory: positive Chest non-tender and No respiratory distress Cardiovascular: positive Regular rate & rhythm Abdomen: positive Non-tender Back: positive Nml inspection Skin: positive Color nml Extremities: positive Non-tender Neurologic/Psychiatric: positive Oriented x3 LABS 01/08/25 04:34 01/08/25 16:52 Discharge Plan Discharge Patient Disposition: Home Health Service Condition: Stable Prescriptions: New folic acid 1 mg Tablet 1 mg PO DAILY Qty: 100 0RF magnesium oxide 400 mg (241.3 mg magnesium) Tablet 400 mg PO DAILYWM Qty: 30 0RF thiamine mononitrate (vit B1) 100 mg Tablet 100 mg PO DAILY Qty: 100 0RF nitrofurantoin monohyd/m-cryst [Macrobid] 100 mg capsule 100 mg PO Q12H 3 Days Qty: 6 0RF Rx Instructions: must administer with a meal/food Activity Restrictions: No Restrictions Diet: Regular Health Concerns: You were brought in by ambulance because you had a severe "butt rash". You do have a history of alcohol abuse with alcoholism and you to quit drinking 5 or 6 days before you came in. You drink on a daily basis and your main choice to drink is beer. You have been having for 5 days of diarrhea. We found several problems. 1 was that of a very low sodium in your blood. That can be quite dangerous and gave you permanent brain damage. Normal sodium is above 135. You had a sodium of. You are discharged with a sodium of 123. Take an [id number] salt tablet twice a day. See your primary care provider in follow-up to recheck your sodium in the next week. You also had a urinary tract infection that grew out a bacteria called E. coli. You have completed 3 days of antibiotics in the hospital. I am sending you home with another 3 days of Macrobid. That is an antibiotic that is a capsule, take it twice a day. Because of your alcohol abuse, you have a folic acid, thiamine, and magnesium deficiency. I am sending you home with prescriptions for all of those. You had severe generalized weakness. You required quite a bit of help just to sit up. That is improved. By discharge you are able to do a lot more. But you still need physical therapy and I am ordering home health to see you at home. Please see your primary care provider in follow-up in the next 1 to 2 weeks so they can check a cell count for your anemia, CMP for your electrolytes and minerals, and magnesium. Print Language: Faroese Patient Instructions: Alcoholism
[2025-01-09] MEDS: polyethylene glycoL 3350 17 GM PACKET PO SCH (11:39)
[2025-01-09 12:45] VITALS: BP 119/69; TEMP 98.2; O2SAT 100
== END 2025-01-09 14:05 | disposition home health service (06) | DRG 690 ==
LOC: ED 13:19 → MS2 21:16
PROVIDERS: ADMIT Internal Medicine; ATTEND Internal Medicine
DX: E86.9 Volume depletion, unspecified; E87.1 Hypo-osmolality and hyponatremia; F32.A Depression, unspecified; E87.6 Hypokalemia; N39.0 Urinary tract infection, site not specified; E83.42 Hypomagnesemia; R19.7 Diarrhea, unspecified; F10.239 Alcohol dependence with withdrawal, unspecified; R20.0 Anesthesia of skin; B37.2 Candidiasis of skin and nail; F10.20 Alcohol dependence, uncomplicated; B96.20 Unspecified Escherichia coli [E. coli] as the cause of diseases classified elsewhere